=== PATIENT | male | born 1985 ===

== ENCOUNTER 2020-01-03 00:34 | Inpatient (IN) | payer BC ==
[2020-01-03] MEDS ORDERED: ACETAMINOPHEN TAB 325 MG TAB PO PRN (06:28)
--- NOTE | 2020-01-03 06:51 | P.HPIM ---
History of Present Illness H&P Date: 01/03/20 Chief Complaint: SOB , coughing I was wearing full PPE during this encounter including N95 mask, face shield, double gloves, gown, and head cover. patient had a surgical mask on during my entire interview. i maintained 6 feet distance with the patient who verbalized understanding about these precautionary measures. except for during my physical exam where i had to be close to the patient. 34-year-old male with hypertension controlled with meds Patient transferred from [facility] due to necessity as a relief hospital. Verbal signout was given by Dr. katz Patient reports one-week history of gradual onset of symptoms consisting of headache, fever, coughing, loss of taste and smell sensation, generalized body aches, symptoms progressed, more severe shortness of breath with fever and coughing. Patient reports that he had his sister visiting from [place] by the time she left went back home over there she was diagnosed with covid 19. This patient was confirmed diagnosis of Covid 19 today January 01 Patient otherwise denies any other complaints of urinary symptoms or abdominal pain denies any nausea or vomiting. Denies any chest pain. Patient is currently laying comfortable in bed however he reports that he becomes very short of breath when he walks to the bathroom. Denies any swelling of the legs orthopnea or paroxysmal nocturnal dyspnea denies any cardiac history Transfer papers were reviewed and showing Patient was tachypneic and febrile with temperature 101.4 Fahrenheit, he was hypoxic but improved with 2 L nasal cannula. Patient was tachycardic Patient had leukocytosis 15.3, lymphocytes 9.3 Hemoglobin 11.9 [place] [address] LDH elevated 1009 CRP elevated 193 Lactic acid normal Patient also found to have acute kidney injury with creatinine 1.9 Elevated creatine kinase 1431 Elevated liver enzymes ALT 61, AST 88 Percussive tone and elevated 0.75 Urine Legionella and strep were negative At [facility] he was given a dose of Zithromax plaquenil and steroids Review of Systems Pertinent positives as noted in HPI. All other systems were reviewed and are negative Past Medical History Past Medical History: Hypertension Additional Past Medical History / Comment(s): Hypertension - Past Family History Mother Family Medical History: Cancer, COPD, Diabetes Mellitus, Hypertension Additional Family Medical History / Comment(s): lung cancer, leukemia Father Family Medical History: Asthma Medications and Allergies Allergies Allergy/AdvReac Type Severity Reaction Status Date / Time Penicillins Allergy Unknown Verified 01/03/20 03:42 Physical Exam Vitals: Vital Signs Temp Pulse Resp BP Pulse Ox 01/03/20 03:33 99.1 F 92 14 130/79 95 Due to positive diagnosis of covid 19 I did limited physical exam mainly inspection to avoid risk of spreading the disease Constitutional: No acute distress, conversant, pleasant, on 2 L nasal cannula Eyes: Anicteric sclerae, Pupils equal round ENMT: NC/AT Neck: Supple, FROM Lungs: Normal respiratory effort, no accessory muscle use Cardiovascular: No peripheral edema Abdominal: Soft Nontender, no guarding, rebound or rigidity Abdomen moving with respiration No palpable mass Skin: Visible portion of the skin Normal temperature, tone, texture, turgor Extremities: No digital cyanosis No clubbing No calf tenderness Psychiatric: Alert and oriented to person, place and time Appropriate affect fair judgement Neuro patient moving all 4 extremities spontaneously Lymphatics: Deferred Assessment and Plan Assessment: 34 year old male with hypertension , transferred to our facility from [facility]. COVID positive, CHELY, rhabdomyolyosis. at the other facility he was given azithro, plaquinel , steroids. and IV fluids. patient had leukocytosis no lymphopenia, elevated ferritin , CK, and CRP. 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 need to verify his home blood pressure meds bisoprolol and lisinopril
[2020-01-03] MEDS: SODIUM CHLORIDE 0.9% 1,000 ML IV SCH ×3 (07:38→21:14)
[2020-01-03] MEDS: DOXYCYCLINE 100 MG CAP PO SCH ×2 (07:39→20:32)
[2020-01-03] MEDS: HEPARIN SODIUM,PORCINE 5,000 UNIT/ML 1 ML VIAL SQ SCH ×2 (07:39→16:16)
--- NOTE | 2020-01-03 07:53 | XR ---
EXAMINATION TYPE: XR chest 1V DATE OF EXAM: 01/03/2020 COMPARISON: NONE HISTORY: COVID TECHNIQUE: Single frontal view of the chest is obtained. FINDINGS: Groundglass infiltrates noted right mid lung zone as well as a left infrahilar region. The cardiac silhouette size is within normal limits. The osseous structures are intact. IMPRESSION: 1. Nonspecific groundglass infiltrates. Rule out COVID
[2020-01-03 08:36] LABS: Basophils % (A) 0 %; Eosinophils % (A) 0 %; HCT 34.9 % (39.0-53.0); HGB 11.7 gm/dL (13.0-17.5); Lymphocytes # (A) 0.5 k/uL (1.0-4.8); Lymphocytes % (A) 5 %; MCH 29.4 pg (25.0-35.0); MCHC 33.4 g/dL (31.0-37.0); MCV 87.9 fL (80.0-100.0); Mean Platelet Volume 9.2; Monocytes # (A) 0.2 k/uL (0-1.0); Monocytes % (A) 2 %; Neutrophils # (A) 9.1 k/uL (1.3-7.7); Neutrophils % (A) 91 %; Platelet Count 240 k/uL (150-450); RBC 3.97 m/uL (4.30-5.90); RDW 12.6 % (11.5-15.5)
[2020-01-03 08:46] LABS: Calcium 8.9 mg/dL (8.4-10.2); Magnesium 2.3 mg/dL (1.6-2.3); Potassium 4.3 mmol/L (3.5-5.1); Total Bilirubin 1.1 mg/dL (0.2-1.3)
[2020-01-03] MEDS ORDERED: HYDROXYCHLOROQUINE SULFATE 200 MG TAB PO ONE (09:00)
--- NOTE | 2020-01-03 13:23 | P.PN ---
Progress Note - Text Progress Note Date: 01/03/20 Patient seen and examined at bedside, does report to be short of breath, patient is afebrile. Patient's blood pressure has been elevated earlier today we'll continue to monitor that A chest x-ray showing groundglass appearance rule out Covid. The patient reported to have Covid testing at [place] which is now pending, of note elevated total CK 1176, and significantly elevated LDH 1176 Continue current treatment protocol with doxycycline and Plaquenil. Continue gentle hydration for mild rhabdo secondary to suspected Covid-19/ ID consultation pending
[2020-01-03] MEDS: HYDROXYCHLOROQUINE SULFATE 200 MG TAB PO SCH (21:13)
--- NOTE | 2020-01-03 23:25 | P.CONS ---
History of Present Illness - Reason for Consult Consult date: 01/03/20 possible COVID19 infection Requesting physician: Mariana Bae - Chief Complaint shortness of breath and cough x few days - History of Present Illness Patient is a 34-year-old -[place] male past medical history of hypertension who sister has been recently diagnosed with COVID-19 infection patient presented to the outside facility with headache fever coughing ge neralized body aches and this patient noticed to be febrile tachypneic and hypoxemic requiring supplemental oxygen patient did have a COVID-19 testing done and the patient has been transferred to [facility] for further management of his underlying pulmonary condition. On examination patient with a T-max of 99.1 patient O2 sats of 92% on 2 L lung auscultation did shows decrease intensity with no significant wheeze labs done which shows.Lymphopenia elevated LDH CRP chest x-ray with bilateral pulmonary infiltrate A/P patient presented to hospital with--- fever hypoxemia in this patient who did have a lymphopenia elevated LDH and CRP with chest x-ray showing bilateral pulmonary fetid likely acute COVID-19 infection patient will be treated with the Plaquenil,Zinc may benefit from low-dose steroids monitor clinical course closely overall notes remains to be guarded in view of risk of progression to ARDS and respiratory failure Past Medical History Past Medical History: Hypertension Additional Past Medical History / Comment(s): Hypertension History of Any Multi-Drug Resistant Organisms: None Reported Past Surgical History: No Surgical Hx Reported Past Anesthesia/Blood Transfusion Reactions: No Reported Reaction Past Psychological History: No Psychological Hx Reported Smoking Status: Never smoker - Past Family History Mother Family Medical History: Cancer, COPD, Diabetes Mellitus, Hypertension Additional Family Medical History / Comment(s): lung cancer, leukemia Father Family Medical History: Asthma Medications and Allergies Home Medications Medication Instructions Recorded Confirmed Type Acetaminophen [Tylenol Extra 1,000 mg PO Q8H PRN 01/03/20 01/03/20 History Strength] Bisoprolol-Hctz 5-6.25 mg [Ziac 1 tab PO DAILY 01/03/20 01/03/20 History 5-6.25 MG] Lisinopril 20 mg PO DAILY 01/03/20 01/03/20 History Allergies Allergy/AdvReac Type Severity Reaction Status Date / Time Penicillins Allergy Rash/Hives Verified 01/03/20 09:13 Physical Exam Vitals: Vital Signs Temp Pulse Resp BP Pulse Ox 01/03/20 12:53 97 01/03/20 12:00 97 01/03/20 11:00 98.0 F 89 18 156/84 97 01/03/20 07:00 98.6 F 94 28 H 119/72 98 01/03/20 04:22 24 01/03/20 03:33 99.1 F 92 14 130/79 95 Intake and Output 01/03/20 01/03/20 01/03/20 06:59 14:59 22:59 Intake Total 236 Balance 236 Intake: Oral 236 Other: Voiding Method Toilet # Voids 3 Weight 88.5 kg Results CBC & Chem 7: 01/03/20 08:03 01/03/20 08:03 Labs: Abnormal Lab Results - Last 24 Hours (Table) 01/03/20 01/03/20 01/03/20 Range/Units 08:03 08:03 08:03 RBC 3.97 L (4.30-5.90) m/uL Hgb 11.7 L (13.0-17.5) gm/dL Hct 34.9 L (39.0-53.0) % Neutrophils # 9.1 H (1.3-7.7) k/uL Lymphocytes # 0.5 L (1.0-4.8) k/uL D-Dimer 1.00 H (<0.60) mg/L FEU BUN 36 H (9-20) mg/dL Creatinine 1.55 H (0.66-1.25) mg/dL Glucose 160 H (74-99) mg/dL AST 107 H (17-59) U/L ALT 86 H (4-49) U/L Lactate Dehydrogenase 2683 H (313-618) U/L Creatine Kinase 1176 H* (55-170) U/L
[2020-01-04] MEDS: HEPARIN SODIUM,PORCINE 5,000 UNIT/ML 1 ML VIAL SQ SCH ×4 (00:31→23:57)
[2020-01-04] MEDS: SODIUM CHLORIDE 0.9% 1,000 ML IV SCH ×2 (06:16→14:38)
[2020-01-04] MEDS: HYDROXYCHLOROQUINE SULFATE 200 MG TAB PO SCH ×2 (07:18→20:52)
[2020-01-04] MEDS: DOXYCYCLINE 100 MG CAP PO SCH ×2 (07:18→20:52)
[2020-01-04 07:55] LABS: Basophils # (A) 0.1 k/uL (0-0.2); Basophils % (A) 0 %; Eosinophils % (A) 0 %; HCT 34.8 % (39.0-53.0); HGB 10.9 gm/dL (13.0-17.5); Lymphocytes % (A) 6 %; MCH 28.6 pg (25.0-35.0); MCHC 31.4 g/dL (31.0-37.0); MCV 91.2 fL (80.0-100.0); Mean Platelet Volume 8.7; Monocytes # (A) 0.9 k/uL (0-1.0); Monocytes % (A) 5 %; Neutrophils # (A) 14.8 k/uL (1.3-7.7); Neutrophils % (A) 86 %; Platelet Count 284 k/uL (150-450); RBC 3.82 m/uL (4.30-5.90); RDW 12.5 % (11.5-15.5); WBC 17.2 k/uL (3.8-10.6)
[2020-01-04 08:03] LABS: ALT 106 U/L (4-49); AST 91 U/L (17-59); African American GFR (CKD) >90 (>60 ml/min/1.73 sqM); Albumin 3.6 g/dL (3.5-5.0); Alkaline Phosphatase 50 U/L (38-126); Anion Gap 3 mmol/L; Blood Urea Nitrogen 32 mg/dL (9-20); Calcium 8.7 mg/dL (8.4-10.2); Carbon Dioxide 28 mmol/L (22-30); Chloride 109 mmol/L (98-107); Glucose 106 mg/dL (74-99); Non-African American GFR(CKD) 83 (>60 ml/min/1.73 sqM); Potassium 4.5 mmol/L (3.5-5.1); Sodium 140 mmol/L (137-145); Total Bilirubin 0.9 mg/dL (0.2-1.3); Total Protein 7.2 g/dL (6.3-8.2)
--- NOTE | 2020-01-04 19:13 | XR ---
EXAMINATION TYPE: XR chest 1V DATE OF EXAM: 01/04/2020 COMPARISON: Yesterday HISTORY: Short of breath. Pneumonia. TECHNIQUE: FINDINGS: There is a mild patchy airspace infiltrate in the lateral aspect right midlung field. Heart and mediastinum are normal. There is no pleural effusion. There are chest leads. Bony thorax is inta ct. IMPRESSION: Mild pneumonia in the periphery of the right midlung increased slightly compared to yeste rday. Normal heart.
--- NOTE | 2020-01-04 22:12 | P.PN ---
Subjective Progress Note Date: 01/04/20 Patient seen and examined at bedside. Patient is with COVID 19 pneumonia. Patient states he gets winded with activity and continues to have a cough. White blood cell count is eleavted today with slightly worsened CXR. Patient denies chest pain and is afebrile. Objective - Vital Signs Vital signs: Vital Signs Temp 97.8 F 01/04/20 15:00 Pulse 89 01/04/20 15:00 Resp 18 01/04/20 15:00 BP 156/91 01/04/20 15:00 Pulse Ox 96 01/04/20 15:00 Intake & Output 01/04/20 01/04/20 01/05/20 06:59 18:59 06:59 Intake Total 20 496 Balance 20 496 Intake: Oral 20 496 Other: Voiding Method Toilet # Voids 1 3 - Constitutional General appearance: Present: average body habitus - EENT Eyes: Present: EOMI, normal appearance ENT: Present: hearing grossly normal, normal oropharynx Ears: bilateral: normal - Neck Neck: Present: normal ROM Carotids: bilateral: upstroke normal Thyroid: bilateral: normal size - Respiratory Respiratory: bilateral: diminished, dullness, rhonchi - Cardiovascular Rhythm: regular Heart sounds: normal: S1, S2 - Gastrointestinal General gastrointestinal: Present: normal bowel sounds, soft - Integumentary Integumentary: Present: normal - Neurologic Neurologic: Present: CNII-XII intact - Musculoskeletal Musculoskeletal: Present: strength equal bilaterally - Psychiatric Psychiatric: Present: A&O x's 3, appropriate affect, intact judgment & insight - Labs CBC & Chem 7: 01/04/20 07:30 01/04/20 07:30 Labs: Abnormal Lab Results - Last 24 Hours (Table) 01/03/20 01/04/20 01/04/20 Range/Units 08:03 07:30 07:30 WBC 17.2 H (3.8-10.6) k/uL RBC 3.82 L (4.30-5.90) m/uL Hgb 10.9 L (13.0-17.5) gm/dL Hct 34.8 L (39.0-53.0) % Neutrophils # 14.8 H (1.3-7.7) k/uL Chloride 109 H (98-107) mmol/L BUN 32 H (9-20) mg/dL Glucose 106 H (74-99) mg/dL AST 91 H (17-59) U/L ALT 106 H (4-49) U/L Creatine Kinase (55-170) U/L Procalcitonin 0.57 H (0.02-0.09) ng/mL 01/04/20 Range/Units 07:30 WBC (3.8-10.6) k/uL RBC (4.30-5.90) m/uL Hgb (13.0-17.5) gm/dL Hct (39.0-53.0) % Neutrophils # (1.3-7.7) k/uL Chloride (98-107) mmol/L BUN (9-20) mg/dL Glucose (74-99) mg/dL AST (17-59) U/L ALT (4-49) U/L Creatine Kinase 734 H (55-170) U/L Procalcitonin (0.02-0.09) ng/mL Microbiology - Last 24 Hours (Table) 01/03/20 08:03 Blood Culture - Preliminary Blood No Growth after 24 hours Assessment and Plan Assessment: 1. Acute hypoxic respiratory failure secondary to COVID 19 pneumonia -continue ABx per ID 2. Leukocytosis secondary to #1 ID recs appreciated will continue to trend IV hydration 3. CHELY secondary to rhabdomyolysis improving with IV hydration 4. 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 contact and droplet precautions Am labs
[2020-01-05] MEDS: SODIUM CHLORIDE 0.9% 1,000 ML IV SCH ×4 (02:55→20:16)
[2020-01-05] MEDS ORDERED: METOPROLOL SUCCINATE (ER) 25 MG TAB.ER.24H PO SCH (06:00)
[2020-01-05 07:47] LABS: Basophils % (A) 0 %; Eosinophils % (A) 0 %; HCT 31.8 % (39.0-53.0); HGB 10.1 gm/dL (13.0-17.5); Lymphocytes # (A) 1.4 k/uL (1.0-4.8); Lymphocytes % (A) 12 %; MCH 28.6 pg (25.0-35.0); MCHC 31.9 g/dL (31.0-37.0); MCV 89.5 fL (80.0-100.0); Mean Platelet Volume 9.1; Monocytes % (A) 8 %; Neutrophils # (A) 9.2 k/uL (1.3-7.7); Neutrophils % (A) 77 %; Platelet Count 338 k/uL (150-450); RBC 3.55 m/uL (4.30-5.90); RDW 12.2 % (11.5-15.5); WBC 12.1 k/uL (3.8-10.6)
[2020-01-05 07:52] LABS: ALT 97 U/L (4-49); AST 57 U/L (17-59); African American GFR (CKD) >90 (>60 ml/min/1.73 sqM); Albumin 3.4 g/dL (3.5-5.0); Alkaline Phosphatase 55 U/L (38-126); Anion Gap 8 mmol/L; Blood Urea Nitrogen 19 mg/dL (9-20); Calcium 8.5 mg/dL (8.4-10.2); Carbon Dioxide 25 mmol/L (22-30); Chloride 106 mmol/L (98-107); Creatine Kinase 520 U/L (55-170); Glucose 86 mg/dL (74-99); Non-African American GFR(CKD) >90 (>60 ml/min/1.73 sqM); Potassium 3.6 mmol/L (3.5-5.1); Sodium 139 mmol/L (137-145); Total Bilirubin 0.8 mg/dL (0.2-1.3); Total Protein 7.1 g/dL (6.3-8.2)
[2020-01-05] MEDS: DOXYCYCLINE 100 MG CAP PO SCH ×2 (08:11→20:15)
[2020-01-05] MEDS: HEPARIN SODIUM,PORCINE 5,000 UNIT/ML 1 ML VIAL SQ SCH ×3 (08:11→23:28)
[2020-01-05] MEDS: HYDROXYCHLOROQUINE SULFATE 200 MG TAB PO SCH ×2 (08:11→20:15)
--- NOTE | 2020-01-05 08:29 | PN ---
PROGRESS NOTE DATE OF SERVICE: 01/04/2020 REASON FOR FOLLOWUP: Acute COVID-19 pneumonia. INTERVAL HISTORY: The patient is currently afebrile. He is feeling slightly better today, breathing comfortably, not requiring any supplemental oxygen. No chest pain, shortness of breath or cough. No abdominal pain or diarrhea. PHYSICAL EXAMINATION: Blood pressure 156/90 with a pulse of 89. Temperature is 97.8. He is 96% on room air. General description: The patient is a middle-aged male up in the chair in no distress. Respiratory system: Unlabored breathing. Decreased breath sounds in the bases. No wheeze. Heart S1, S2. Regular rate and rhythm. Abdomen soft, no tenderness. LABS: Hemoglobin is 10.8, white count 17.2, BUN of 32, creatinine is 1.55. DIAGNOSTIC IMPRESSION AND PLAN: Patient with acute COVID-19 pneumonia. Patient seemed to have shown clinical improvement. The x-ray did show slight worsening. However, the patient no fever or need for supplemental oxygen. The patient to continue with Plaquenil along with Vibramycin and we will monitor clinical course closely. Continue supportive care. MMODL / IJN: [id number] /
[2020-01-05] MEDS ORDERED: METOPROLOL SUCCINATE (ER) 25 MG TAB.ER.24H PO STA (11:55)
--- NOTE | 2020-01-05 16:31 | P.PN ---
Subjective Progress Note Date: 01/05/20 Patient seen and examined at bedside. Patient is COVID-19 positive. Blood cell count is trending down from 17 to 12.1. Creatinine has improved from 1.5 to 0.99. Patient is resting in bed comfortably. Oxygen today is 95% on room air. Blood pressure continues to be elevated. Metoprolol will be increased to 50 mg daily. Objective - Vital Signs Vital signs: Vital Signs Temp 98.8 F 01/05/20 11:00 Pulse 83 01/05/20 11:00 Resp 17 01/05/20 11:00 BP 155/93 01/05/20 11:00 Pulse Ox 95 01/05/20 11:00 Intake & Output 01/04/20 01/05/20 01/05/20 18:59 06:59 18:59 Intake Total 496 1560 1040 Balance 496 1560 1040 Intake: IV 1040 Sodium Chloride 0.9% 1, 1040 000 ml @ 130 mls/hr IV . Q7H42M ANNE MARIE Rx#:[id number] Intake, IV Titration 1560 Amount Sodium Chloride 0.9% 1, 1560 000 ml @ 130 mls/hr IV . Q7H42M ANNE MARIE Rx#:[id number] Oral 496 Other: # Voids 3 4 3 - Exam General: [non toxic], [no distress], [appears at stated age] Derm: [warm], [dry] Head: [atraumatic], [normocephalic], [symmetric] Eyes: [EOMI], [no lid lag], [anicteric sclera] Mouth: [no lip lesion], [mucus membranes moist] Cardiovascular: [S1S2 reg], [no murmur], [positive posterior tibial pulse bilateral], Lungs: [diminished bilateral], [no rhonchi, no rales] , [no accessory muscle use] Abdominal: [soft], [ nontender to palpation], [no guarding], [no appreciable organomegaly] Ext: [no gross muscle atrophy], [no edema], [no contractures] Neuro: [ CN II-XI grossly intact], [no focal neuro deficits] Psych: [Alert], [oriented], [appropriate affect] - Labs CBC & Chem 7: 01/05/20 07:00 01/05/20 07:00 Labs: Abnormal Lab Results - Last 24 Hours (Table) 01/05/20 01/05/20 Range/Units 07:00 07:00 WBC 12.1 H (3.8-10.6) k/uL RBC 3.55 L (4.30-5.90) m/uL Hgb 10.1 L (13.0-17.5) gm/dL Hct 31.8 L (39.0-53.0) % Neutrophils # 9.2 H (1.3-7.7) k/uL ALT 97 H (4-49) U/L Creatine Kinase 520 H (55-170) U/L Albumin 3.4 L (3.5-5.0) g/dL Microbiology - Last 24 Hours (Table) 01/03/20 08:03 Blood Culture - Preliminary Blood No Growth after 48 hours Assessment and Plan Assessment: 1. Acute hypoxic respiratory failure secondary to COVID 19 pneumonia improved -continue ABx per ID 2. Leukocytosis secondary to #1 -leukoocytosis improved from 17 to 12.1 ID recs appreciated will continue to trend IV hydration 3. CHELY secondary to rhabdomyolysis improving with IV hydration 4. 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 Will plan discharge once cleared by infectious disease Am labs
[2020-01-06] MEDS: SODIUM CHLORIDE 0.9% 1,000 ML IV SCH (04:42)
--- NOTE | 2020-01-06 07:23 | PN ---
PROGRESS NOTE DATE OF SERVICE: 01/05/2020 REASON FOR FOLLOWUP: Acute COVID-19 pneumonia. INTERVAL HISTORY: The patient is currently afebrile. The patient has been breathing comfortably. Denies having any chest pain or shortness of breath. Occasional cough. No nausea, no vomiting. No abdominal pain no diarrhea. PHYSICAL EXAMINATION: Blood pressure 155/90 with a pulse of 80, temperature 98.9, he is 96% on room air. General description is a young male, up in the bed in no distress. RESPIRATORY SYSTEM: Unlabored breathing, decreased breath sounds in the bases. No wheeze. HEART: S1, S2. Regular rate and rhythm. ABDOMEN: Soft, no tenderness. LABS: Hemoglobin is 10.1, white count 12.1, BUN of 19, creatinine 0.99. Blood culture has been negative. DIAGNOSTIC IMPRESSION AND PLAN: Patient with acute COVID-19 pneumonia. Patient seemed to have shown clinical response to Plaquenil. He will finish therapy with a 5-day course of Plaquenil and a short course of doxycycline in outpatient setting. Monitor clinical course closely. MMODL / IJN: [id number] /
[2020-01-06] MEDS: DOXYCYCLINE 100 MG CAP PO SCH (08:07)
[2020-01-06] MEDS: HYDROXYCHLOROQUINE SULFATE 200 MG TAB PO SCH (08:07)
[2020-01-06] MEDS: HEPARIN SODIUM,PORCINE 5,000 UNIT/ML 1 ML VIAL SQ SCH ×2 (08:08→17:01)
[2020-01-06] MEDS ORDERED: METOPROLOL SUCCINATE (ER) 50 MG TAB.ER.24H PO SCH (09:00)
[2020-01-06 11:33] VITALS: BP 138/91; PULSE 103; RESP 17; TEMP 98.1
--- NOTE | 2020-01-06 14:00 | P.DS ---
Providers Date of admission: 01/03/20 03:23 Expected date of discharge: 01/06/20 Attending physician: Mariana Bae MD Consults: 01/03/20 06:30 Consult Physician Routine Consulting Provider: Yoly Sanchez Consult Reason/Comments: covid Do you want consulting provider notified?: Yes Primary care physician: Physician Nonstaff Hospital Course: 34-year-old male with hypertension controlled with meds Patient transferred from [facility] due to necessity as a relief hospital. Verbal signout was given by Dr. katz Patient reports one-week history of gradual onset of symptoms consisting of headache, fever, coughing, loss of taste and smell sensation, generalized body aches, symptoms progressed, more severe shortness of breath with fever and coughing. Patient reports that he had his sister visiting from [place] by the time she left went back home over there she was diagnosed with covid 19. This patient was confirmed diagnosis of Covid 19 today January 01 Patient otherwise denies any other complaints of urinary symptoms or abdominal pain denies any nausea or vomiting. Denies any chest pain. Patient is currently laying comfortable in bed however he reports that he becomes very short of breath when he walks to the bathroom. Denies any swelling of the legs orthopnea or paroxysmal nocturnal dyspnea denies any cardiac history Transfer papers were reviewed and showing Patient was tachypneic and febrile with temperature 101.4 Fahrenheit, he was hypoxic but improved with 2 L nasal cannula. Patient was tachycardic Patient had leukocytosis 15.3, lymphocytes 9.3 Hemoglobin 11.9 Ferritin was 52488 LDH elevated 1009 CRP elevated 193 Lactic acid normal Patient also found to have acute kidney injury with creatinine 1.9 Elevated creatine kinase 1431 Elevated liver enzymes ALT 61, AST 88 Percussive tone and elevated 0.75 Urine Legionella and strep were negative At [facility] he was given a dose of Zithromax plaquenil and steroids. Patient was started on doxycycline for concerns of pneumonia along with plaquenil. He was noted to have leukocytosis on January 03 of 17.2 which is trending down to 12.1 at the time of discharge. This is thought to be related to steroid use. His acute kidney injury improved and his creatinine was within normal limits at the time of discharge. His CPK trended down to 520 at the time of discharge. Patient was seen and examined. No acute events overnight. Patient reports significant improvement in his breathing since admission. He denies any chest pain, shortness breath or palpitations. No nausea or vomiting. No fever or chills. And bleeding to the washroom without any difficulties. Currently saturating mid 90s on room air. General: [non toxic], [no distress], [appears at stated age] Derm: [warm], [dry] Head: [atraumatic], [normocephalic], [symmetric] Eyes: [EOMI], [no lid lag], [anicteric sclera] Mouth: [no lip lesion], [mucus membranes moist] Cardiovascular: [S1S2 reg], [no murmur], [positive DP pulse bilateral], Lungs: [CTA bilateral], [no rhonchi, no rales] , [no accessory muscle use] Abdominal: [soft], [ nontender to palpation], [no guarding], [no appreciable organomegaly] Ext: [no gross muscle atrophy], [no edema], [no contractures] Neuro: [no focal neuro deficits] Psych: [Alert], [oriented], [appropriate affect] Acute hypoxic respiratory failure secondary to Covid 19 pneumonia, resolved Leukocytosis, improved Transaminitis, improved Acute kidney injury secondary to rhabdomyolysis, improved Hypertension Patient shows significant improvement in his breathing and is now on room air saturating mid 90s. He is able to ambulate to the washroom without any difficulties. His leukocytosis of 17.2 is trending down to 12.1 which could be related to the steroids he received at the outside hospital. Patient was noted to have a transaminitis with AST of 107, ALT of 86 on admission which has been trending down and is consistent with Covid 19 infection. His acute kidney injury has resolved with hydration. His CPK has been trending down from 1176- 520 at the time of discharge. Patient has been encouraged hydration by mouth. His blood pressure at the time of discharge was 138/91 and he was advised to resume his home antihypertensive medication. Patient advised to follow-up with PCP within 2 days of discharge. Advised of warning symptoms for when to come back to the hospital. This complex discharge took about 35 minutes to complete. Pertinent Studies: Chest x-ray Patient Condition at Discharge: Stable Plan - Discharge Summary New Discharge Prescriptions: New Hydroxychloroquine Sulfate [Plaquenil] 200 mg PO BID #2 tab Acetaminophen Tab [Tylenol] 650 mg PO Q4HR PRN tab PRN Reason: Mild Pain Or Fever > 100.5 Doxycycline [Vibramycin] 100 mg PO BID #7 cap Continue Lisinopril 20 mg PO DAILY Bisoprolol-Hctz 5-6.25 mg [Ziac 5-6.25 MG] 1 tab PO DAILY Acetaminophen [Tylenol Extra Strength] 1,000 mg PO Q8H PRN PRN Reason: PAIN/FEVER Discharge Medication List Acetaminophen [Tylenol Extra Strength] 1,000 mg PO Q8H PRN 01/03/20 [History] Bisoprolol-Hctz 5-6.25 mg [Ziac 5-6.25 MG] 1 tab PO DAILY 01/03/20 [History] Lisinopril 20 mg PO DAILY 01/03/20 [History] Acetaminophen Tab [Tylenol] 650 mg PO Q4HR PRN tab 01/06/20 [Rx] Doxycycline [Vibramycin] 100 mg PO BID #7 cap 01/06/20 [Rx] Hydroxychloroquine Sulfate [Plaquenil] 200 mg PO BID #2 tab 01/06/20 [Rx] Follow up Appointment(s)/Referral(s): Nonstaff,Physician [Primary Care Provider] - 1 Week Activity/Diet/Wound Care/Special Instructions: FU with PCP within 1-2 days of discharge. Take all medications as advised. Please self isolate. Come back to the ED for worsening fevers > 101.4F, worsening shortness of breath, dizziness or chest pain.
--- NOTE | 2020-01-06 17:17 | PN ---
PROGRESS NOTE DATE OF SERVICE: 01/06/2020 REASON FOR FOLLOWUP: Acute COVID-19 pneumonia. INTERVAL HISTORY: The patient is currently afebrile. The patient has been breathing comfortably. The patient denies having any chest pain or shortness of breath. Minimal cough. No nausea, no vomiting. No abdominal pain. No diarrhea. PHYSICAL EXAMINATION: Blood pressure 138/91 with pulse of 103, temperature 98.1. He is 96% on room air. General description is a middle-aged male up in the bed in no distress. RESPIRATORY SYSTEM: Unlabored breathing with decreased intensity of breath sounds. No wheeze. HEART: S1, S2. Regular rate and rhythm. ABDOMEN: Soft. No tenderness. LABS: Hemoglobin is 10.1, white count 12.1 with a BUN of 19, creatinine 0.99. DIAGNOSTIC IMPRESSION AND PLAN: Patient with acute COVID-19 pneumonia. Patient with overall clinical improvement. He will finish a 5-day course of oral Plaquenil along with a short course of oral doxycycline and close outpatient followup. MMODL / IJN: [id number] /
== END 2020-01-06 17:07 | disposition home or self-care (01) | DRG 177 ==
LOC: 4SSUR 03:23
PROVIDERS: ADMIT Internal Medicine; ATTEND Internal Medicine
DX: U07.1 COVID-19 (principal); J96.01 Acute respiratory failure with hypoxia; J12.89 Other viral pneumonia; N17.9 Acute kidney failure, unspecified; E87.2 Acidosis; M62.82 Rhabdomyolysis; I10 Essential (primary) hypertension; R74.0 Nonspecific elevation of levels of transaminase and lactic acid dehydrogenase [LDH]; R79.82 Elevated C-reactive protein (CRP); R74.8 Abnormal levels of other serum enzymes; D64.9 Anemia, unspecified; D72.810 Lymphocytopenia; Z79.899 Other long term (current) drug therapy; Z88.0 Allergy status to penicillin; Z83.3 Family history of diabetes mellitus; Z82.5 Family history of asthma and other chronic lower respiratory diseases; Z82.49 Family history of ischemic heart disease and other diseases of the circulatory system; Z80.6 Family history of leukemia; Z80.1 Family history of malignant neoplasm of trachea, bronchus and lung
CPT/HCPCS: 71045; 80053; 82550; 82553; 83615; 83625; 83735; 84100; 84145; 85025; 85379; 86140; 87040; 87502; 93005